=== PATIENT | female | born 1945 | race Caucasian/White ===

== ENCOUNTER → 2017-11-01 13:32 | Outpatient (CLI) | payer MEDICARE, SELFPAY | PROVIDERS: Family Provider Family Medicine; PCP Family Medicine; Visit Provider Family Medicine | DX: R06.02 Shortness of breath (principal) | CPT/HCPCS: 93016; 93017; 93018 ==

== ENCOUNTER 2019-02-18 10:13 | Day surgery (SDC) | payer MEDICARE, SELFPAY ==
--- NOTE | 2019-02-14 12:43 | PM.PREOP ---
Pre-operative Note Interval Note History & Physical reviewed/Exam performed by Physician: Yes Changes to H&P: No
--- NOTE | 2019-02-14 12:44 | P.OP_ITS ---
Operative Date/Time/Diagnoses Date of procedure: 02/18/19 Time of procedure: 11:45 Procedure & Clinicians Procedure: Preoperative diagnoses: 1. Left cortical and nuclear sclerotic cataract 2. Astigmatism which is to be corrected with a toric intraocular lens implant. 3. 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 Postoperative diagnoses: 1. Cataract removal with phacoemulsification with toric posterior chamber intraocular lens implant placed. Procedure: Phacoemulsification with posterior chamber toric intraocular lens implant. Surgeon: Maria Guadalupe Brody MD Complications: None Specimen: None Implant: [id number] [place] 145 Blood loss: None Anesthesia: Retrobulbar with monitored standby Description of procedure: Patient presents with a complaint of decreased vision due to cataract which is affecting activities of daily living especially distance. The patient wants surgery to improve vision and astigmatism. She is a high myope and understands there is slight extra risk of calculation error as well as retinal detachment. She has stable lattice degeneration prior to surgery. A distance target is chosen of -0.50. The patient was taken to the operating room and proparacaine drops placed. Indelible ink mcneill were placed at the 90 and 180 degree meridian. The patient was placed on the operating room table and given IV sedation. A retrobulbar block insert consisting of 6 cc of 2% xylocaine without epinephrine mixed half and half with 0.5% Marcaine with 1 cc of hyaluronidase added is placed between the medial and lateral 1/3 of the inferior orbital rim. The eye is manually massaged for 30 sec, prepped using Betadine solution, and draped in the usual sterile fashion. Temporal approach was made, a 1 mm side-port incision was made 90? from the proposed corneal wound. Phenylephrine 1.5% mixed with 1% xylocaine 0.2 cc was placed into the anterior chamber. Viscoat followed by [place] was then placed. A 2.6 mm clear incision with a 2.6 mm blade was placed at the 170 degree meridian. A 360 degree capsulorrhexis style capsulotomy was then performed with a cystitome needle on a [place]. Hydrodelineation and hydrodissection were performed.The patient had multiple episodes of coughing during the procedure and I had to withdraw from the eye until this cleared.No complications developed. Extra viscoelastic was placed and the procedure continued. The phacoemulsification unit is introduced, and sculpting used to groove the central lens. It is then removed in chopping mode. Epi nucleus is removed with epinuclear mode and irrigation aspiration was used to remove the peripheral cortex. The posterior capsule is polished. The intraocular lens is selected, inspected, power confirmed, and placed in the posterior chamber at the desired meridian of 145?. The pupil was not constricted. The wound was stromally hydrated and tested for leaks, there was none and it was left sutureless. Vigamox 0.1 cc was placed into the anterior chamber. Kenalog 0.2 cc was placed in the superior subconjunctival space. A drop of antibiotic and was placed and the eye was patched and shielded. The patient was stable and returned to the recovery room in excellent condition. She will need to use her inhaler immediate ly before her next surgery and will sleep with the head of her bed slightly elevated. Dictated by: Maria Guadalupe Brody MD Copy to: [facility]
[2019-02-18] MEDS: CATARACT EYE COMPOUND (10 DROPS/SYRINGE) 3 DROPS EYE-OP (11:10)
[2019-02-18] MEDS: PROPARACAINE 0.5% OPHTH SOL 2 DROPS EYE-OP ×2 (11:10→12:24)
[2019-02-18 11:21] VITALS: BP 154/77; PULSE 56; RESP 16; TEMP 36; O2SAT 97; BMI 33.3
[2019-02-18] MEDS: LIDOCAINE 2% 4 ML, BUPIVACAINE 0.5% (PF) 4 ML, HYALURONIDASE 150 UNIT INJ (12:26)
[2019-02-18] MEDS: ERYTHROMYCIN OPHTH 1 GM OINT 1 APPLIC EYE-LEFT (12:44)
[2019-02-18] MEDS: CHONDROIDTIN/SOD HYALURONATE 1.05 ML SYRINGE INTRAOCULA (12:44)
[2019-02-18] MEDS: HYALURONATE SODIUM 10 MG/ML SYRINGE INJ (12:45)
[2019-02-18] MEDS: TRIAMCINOLONE 50 MG/5 ML VIAL INJ (12:48)
[2019-02-18] MEDS: BALANCED SALT IRRIG SOLN NO.2 500 ML, EPINEPHrine 1 MG IRR (12:50)
[2019-02-18] MEDS: PHENYLEPHRINE/LIDOCAINE VIAL (OR) 0.2 ML EYE-OP (12:52)
[2019-02-18] MEDS: MOXIFLOXACIN INJ 5 MG/ML VIAL EYE-OP (12:52)
[2019-02-18 13:12] VITALS: BP 160/73; PULSE 53; RESP 10; TEMP 36.1; O2SAT 98
== END 2019-02-18 13:25 | disposition home or self-care (01) ==
LOC: OR 10:16
PROVIDERS: Family Provider Family Medicine; PCP Family Medicine; Visit Provider Ophthalmology
PROC: (CPT 66984; principal; 2019-02-18 11:45)
DX: H25.812 Combined forms of age-related cataract, left eye (principal); H52.202 Unspecified astigmatism, left eye; H44.20 Degenerative myopia, unspecified eye
CPT/HCPCS: 66984; J0171; J2704; J3301; J3470; V2787

== ENCOUNTER 2019-03-04 08:03 | Day surgery (SDC) | payer MEDICARE, SELFPAY ==
--- NOTE | 2019-03-02 12:59 | PM.PREOP ---
Pre-operative Note Interval Note History & Physical reviewed/Exam performed by Physician: Yes Changes to H&P: No H&P completed within 30 days and has changed as indicated here:: She continues to have an intermittent cough and an inhaler was used prior to surgery as well as an anti-histamine.
--- NOTE | 2019-03-02 13:00 | P.OP_ITS ---
Operative Date/Time/Diagnoses Date of procedure: 03/04/19 Time of procedure: 09:45 Procedure & Clinicians Procedure: Preoperative diagnoses: 1. Right nuclear sclerotic and cortical cataract. 2. Asthma 3. Postnasal drip with sporadic cough, significant during her last cataract surgery. 4. Obesity 5. Astigmatism which she likes to correct with a toric intraocular lens. 6. High myope. Postoperative diagnoses: 1. Cataract removed by phacoemulsification with placement of posterior chamber intraocular lens. Procedure: Phacoemulsification with posterior chamber intraocular lens implant Surgeon: Maria Guadalupe Brody MD Complications: None Specimen: None Implant: ZCT 150+10.5 [place] 112 Blood loss: None Anesthesia: Retrobulbar with monitored standby Description of procedure: Patient presents with a complaint of decreased vision due to cataract which is affecting activities of daily living. The patient wants surgery to improve vision. She wishes an astigmatism correcting implant to reduce her dependence on distance glasses. She was taken to the operating room and indelible ink mcneill were placed in the cardinal meridians with a special marking pen with the use of topical anesthetic. She had significant cough during her previous procedure and has been treated preoperatively with an antihistamine and her her inhaler to reduce likelihood of this recurring. The patient was taken to the operating room and given IV sedation. A retrobulbar block consisting of 6 cc of 2% xylocaine without epinephrine mixed half and half with 0.5% Marcaine with 1 cc of hyaluronidase added is placed between the medial and lateral 1/3 of the inferior orbital rim. The eye is manually massaged for 30 sec, prepped using Betadine solution, and draped in the usual sterile fashion. Temporal approach was made, a 1 mm side-port incision was made 90? from the proposed clear corneal incision position. Phenylephrine 1.5% mixed with 1% xylocaine 0.2 cc was placed into the anterior chamber. Viscoat followed by Brendaon was then placed. A 2.6 mm clear incision with a 2.6 mm blade was placed. A 360 degree capsulorrhexis style capsulotomy was then performed with a cystitome needle on a [place]. Hydrodelineation and hydrodissection were performed. The phacoemulsification unit is introduced, and sculpting notice used to groove the central lens. It is then removed in chopping mode. Epi nucleus is removed with epinuclear mode and irrigation aspiration was used to remove the peripheral cortex. The posterior capsule is polished. Special mcneill were placed at the desired axis of 112?. The intraocular lens is selected, inspected, power confirmed, and placed in the posterior chamber. It is placed in the desired meridian of 112?. The wound was stromally hydrated and tested for leaks, there was none and it was left sutureless. Vigamox 0.1 cc was placed into the anterior chamber. Kenalog 0.2 cc was placed in the superior subconjunctival space. A drop of antibiotic and was placed and the eye was patched and shielded. The patient was stable and returned to the recovery room in excellent condition. She did not have coughing episodes during the surgery. Dictated by: Maria Guadalupe Brody MD Copy to: [facility]
[2019-03-04 08:50] VITALS: BP 147/76; PULSE 64; RESP 17; TEMP 36.1; O2SAT 97
[2019-03-04] MEDS: PROPARACAINE 0.5% OPHTH SOL 2 DROPS EYE-OP ×2 (08:51→10:09)
[2019-03-04] MEDS: CATARACT EYE COMPOUND (10 DROPS/SYRINGE) 3 DROPS EYE-OP (08:56)
[2019-03-04 09:00] VITALS: BMI 33.3
--- NOTE | 2019-03-04 10:05 | SUR.OPER ---
Supine on eye stretcher, head on extension cradle secured with tape. Arms tucked at sides with blanket. Pillow under knees.
[2019-03-04] MEDS: ERYTHROMYCIN OPHTH 1 GM OINT 1 APPLIC EYE-RIGHT (10:08)
[2019-03-04] MEDS: PHENYLEPHRINE/LIDOCAINE VIAL (OR) 0.2 ML EYE-OP (10:08)
[2019-03-04] MEDS: TRIAMCINOLONE 50 MG/5 ML VIAL INJ (10:09)
[2019-03-04] MEDS: LIDOCAINE 2% 4 ML, BUPIVACAINE 0.5% (PF) 4 ML, HYALURONIDASE 150 UNIT INJ (10:10)
[2019-03-04] MEDS: CHONDROIDTIN/SOD HYALURONATE 1.05 ML SYRINGE INTRAOCULA (10:10)
[2019-03-04] MEDS: BALANCED SALT IRRIG SOLN NO.2 500 ML, EPINEPHrine 1 MG IRR (10:11)
[2019-03-04] MEDS: MOXIFLOXACIN INJ 5 MG/ML VIAL EYE-OP (10:11)
[2019-03-04 10:39] VITALS: BP 153/82; PULSE 58; RESP 16; TEMP 36.2; O2SAT 100
--- NOTE | 2019-03-04 10:56 | SUR.PHASEII ---
Post procedure note: VSS post op. Tolerating po without nausea. No complaints of pain. IV D/C'd. Discharge instructions reviewed with good understanding. Stable for discharge to home. W/C to car with .
== END 2019-03-04 11:00 | disposition home or self-care (01) ==
LOC: OR 08:07
PROVIDERS: Family Provider Family Medicine; PCP Family Medicine; Visit Provider Ophthalmology
PROC: (CPT 66984; principal; 2019-03-04 09:45)
DX: H25.811 Combined forms of age-related cataract, right eye (principal); J45.909 Unspecified asthma, uncomplicated; E66.9 Obesity, unspecified; H52.201 Unspecified astigmatism, right eye; H52.10 Myopia, unspecified eye
CPT/HCPCS: 66984; J0171; J2704; J3301; J3470; V2787

== ENCOUNTER 2024-07-20 14:03 | Emergency (ER) | payer MEDICARE, SELFPAY ==
[2024-07-20 14:27] VITALS: BP 154/70; PULSE 55; RESP 16; TEMP 36.6; O2SAT 99
--- NOTE | 2024-07-20 14:36 | DI.CT.S_ITS ---
PROCEDURE: CT KIDNEY URETER BLADDER (KUB) INDICATIONS: r/o kidney stone TECHNIQUE: Axial sections were acquired from the lung bases to the pubic symphysis. Coronal and sagittal reformats were performed. For radiation dose reduction, the following was used: automated exposure control, adjustment of mA and/or kV according to patient size. COMPARISON: None. FINDINGS: Image quality: Diagnostic. Lower Chest: Moderate to large hiatal hernia is seen. No pleural effusion or pneumothorax. Heart size is normal, no pericardial effusion. URINARY: Right Kidney: No stones or hydronephrosis. Right Ureter: No hydroureter. Left Kidney: No stones or hydronephrosis. Left Ureter: No hydroureter. Bladder: Normal wall thickness. No stones. ABDOMEN: Liver: No contour-deforming solid mass. Gallbladder: Gallbladder is surgically absent. Biliary ducts: No biliary dilation. Pancreas: No ductal dilation. Spleen: Size is within normal limits. Adrenal Glands: No adrenal nodules. Stomach and Bowel: Fecal stasis in the colon is seen. There is no bowel obstruction. Appendix is visualized and is within normal limits. No abnormal bowel wall thickening or mesenteric fat stranding. No abscess collection. Peritoneum: No abnormal intraperitoneal fluid. No free air. Ventral Wall: No hernia. Abdominal Nodes: No enlarged retroperitoneal or mesenteric lymph nodes. Vessels: Aorta and inferior vena cava are normal in size. PELVIS: Pelvic Organs: Unremarkable. Pelvic Nodes: Unremarkable. Miscellaneous: No inguinal hernias are seen. Bones: Prior left total hip arthroplasty is seen with beam hardening artifacts . No aggressive appearing bony lesions. No acute vertebral body compression fracture. Degenerative disc disease in visualized lower thoracic spine and lumbar spine is seen. IMPRESSION: 1. No obstructing stones or hydronephrosis. Normal appearing urinary bladder. 2. [id number] constipation. No bowel obstruction or abnormal bowel wall thickening. No free fluid or free air. Normal appendix. 3. Moderate to large size hiatal hernia. 4. Degenerative disc disease throughout lower thoracic and lumbar spine. No acute vertebral body compression fracture. Prior left total hip arthroplasty. Dictated by: Tavon Mckeon M.D. on 07/20/2024 at 15:30 Approved by: Tavon Mckeon M.D. on 07/20/2024 at 15:48
[2024-07-20 14:43] LABS: Appearance Urine UA CLEAR; Bilirubin Urine UA NEGATIVE (NEGATIVE); Color Urine UA YELLOW; Glucose Urine UA NEGATIVE (Negative); Ketones Urine UA NEGATIVE (NEGATIVE); Leukocyte Esterase Urine UA TRACE (NEGATIVE); Nitrite Urine UA POSITIVE (Negative); Occult Blood Urine UA NEGATIVE (Negative); Protein Urine UA NEGATIVE (Negative); Specific Gravity Urine UA 1.015 (1.000-1.035); Urobilinogen Urine UA 0.2 E.U./dL (0.2); pH Urine UA 5.5 (4.5-8.0)
[2024-07-20 14:44] LABS: Urine Volume 10mL (spun)
[2024-07-20 14:45] LABS: Bacteria Urine Many (>30); Culture Indicated Urine Specimen Cultured; RBC Urine None Seen (0-5/HPF); Squamous Epithelial Cell Urine None Seen (0-5/HPF); WBC Urine 1-5/HPF (0-5/HPF)
--- NOTE | 2024-07-20 17:36 | ED_ITS ---
HPI - Female Genitourinary <Kurtis Griffiths PA-C - Last Filed: 07/20/24 18:11> General Chief complaint: Urogenital-Female Stated complaint: Directed to ER for CT Time Seen by Provider: 07/20/24 17:27 Source: patient Mode of arrival: Ambulatory History of Present Illness HPI Narrative: 78-year-old female presents to the ED with 1 day of right-sided abdominal pain. Patient was seen at the [place] ED, labs were obtained but there CT was down and therefore were sent to our ED for further evaluation. They would like to rule out kidney stones. Patient states that she was vacuuming, when she felt onset of left-sided abdominal pain that started just below the right lower ribs, radiating through her groin. Patient also felt some chills, nausea. No fever, vomiting, chest pain, shortness of breath. Patient does not have a history of UTI. Patient is status post cholecystectomy. Patient states that the severe pain lasted for about 2-3 hours, after which it became a very mild dull pain. Related Data Home Medications Medication Instructions Recorded Confirmed albuterol sulfate 90 mcg/actuation 1 inh inhalation QID 02/18/19 02/18/19 aerosol inhaler (ProAir HFA) fluticasone 100 mcg-salmeterol 50 1 puff inhalation BID 02/18/19 02/18/19 mcg/dose blistr powdr for inhalation (Wixela Inhub) Previous Rx's Medication Instructions Recorded cefdinir 300 mg capsule 300 mg PO Q12H 10 days #20 caps 07/20/24 Allergies Allergy/AdvReac Type Severity Reaction Status Date / Time epinephrine AdvReac Palpitation Verified 07/20/24 14:27 s neomycin AdvReac Rash Verified 07/20/24 14:27 oxycodone [From Endocet] AdvReac Nausea Verified 07/20/24 14:27 Review of Systems <Kurtis Griffiths PA-C - Last Filed: 07/20/24 18:11> Constitutional Constitutional: Reports chills, Denies fatigue, Denies fever(s), Denies frequent falls, Denies lethargy and Denies weakness Eyes Eyes: Denies change in vision, Denies eye discharge, Denies irritation and Denies loss of vision ENT Ears, Nose, Mouth, and Throat: Denies change in voice, Denies dizziness, Denies neck pain, Denies sore throat and Denies throat swelling Cardiovascular Cardiovascular: Denies chest pain, Denies irregular heart rhythm, Denies lightheadedness, Denies palpitations, Denies dyspnea, Denies dyspnea on exertion and Denies orthopnea Respiratory Respiratory: Denies cough, Denies dyspnea, Denies dyspnea on exertion and Denies wheezing Gastrointestinal Gastrointestinal: Reports abdominal pain, Denies change in bowel habits, Denies diarrhea, Reports nausea and Denies vomiting Musculoskeletal Musculoskeletal: Denies neck pain and Denies numbness Integumentary/Breasts Skin/Breast: Denies pruritus, Denies erythema, Denies rash and Denies wounds Neurologic Neurologic: Denies behavioral changes, Denies confusion, Denies dizziness, Denies frequent falls, Denies loss of vision, Denies numbness and Denies weakness Psychiatric Psychiatric: Denies anxiety, Denies behavioral changes, Denies confusion, Denies depression, Denies homicidal ideation and Denies suicidal ideation Endocrine Endocrine: Denies fatigue, Denies flushing and Denies palpitations Hematologic/Lymphatic Hematologic/Lymphatic: Denies easy bruising Allergic/Immunologic Allergic/Immunologic: Denies urticaria, Denies throat swelling and Denies wheezing Exam <Kurtis Griffiths PA-C - Last Filed: 07/20/24 18:11> Narrative Exam Narrative: Const General:?cooperative, healthy appearing and comfortable [facility] Head:?normal to inspection Ears:?hearing grossly normal bilaterally Nose:?external nose normal Face and sinus:?normal facial exam and sinuses nontender Mouth:?oral mucosae normal Throat:?posterior oropharynx normal Eyes General:?appearance normal, both eyes and all related structures Neck Neck:?normal visual inspection and no lymphadenopathy noted Resp Effort & Inspection:?normal respiratory effort Auscultation:?clear to auscultation bilaterally Cardio Rate:?regular rate Rhythm:?regular rhythm GI Abdomen is soft, nondistended. Abdomen is very mildly tender to palpation in the right upper quadrant. It is possible the pain is musculoskeletal versus constipation. No CVA tenderness. Neuro General:?patient alert, patient awake and patient oriented x3 Initial Vital Signs Initial Vital Signs: Vital Signs Temperature 97.8 F 07/20/24 14:27 Pulse Rate 55 L 07/20/24 14:27 Respiratory Rate 16 07/20/24 14:27 Blood Pressure 154/70 H 07/20/24 14:27 Pulse Oximetry 99 07/20/24 14:27 Oxygen Delivery Method Room Air 07/20/24 14:27 <Poly Benítez DO - Last Filed: 07/22/24 09:02> Initial Vital Signs Initial Vital Signs: Vital Signs Temperature 97.8 F 07/20/24 14:27 Pulse Rate 55 L 07/20/24 14:27 Respiratory Rate 16 07/20/24 14:27 Blood Pressure 154/70 H 07/20/24 14:27 Pulse Oximetry 99 07/20/24 14:27 Oxygen Delivery Method Room Air 07/20/24 14:27 Course <Kurtis Griffiths PA-C - Last Filed: 07/20/24 18:11> Orders Ordered: Discontinued Medications Cefdinir (Cefdinir 300 Mg Capsule) 300 mg PO NOW ONE Stop: 07/20/24 17:46 Last Admin: 07/20/24 17:59 Dose: 300 mg Documented By: SHANICE Vital Signs Vital signs: Vital Signs - 8 hr 07/20/24 14:27 Temperature 97.8 F Pulse Rate 55 L Respiratory Rate 16 Blood Pressure 154/70 H Pulse Oximetry 99 Oxygen Delivery Method Room Air <Poly Benítez DO - Last Filed: 07/22/24 09:02> Orders Ordered: Discontinued Medications Cefdinir (Cefdinir 300 Mg Capsule) 300 mg PO NOW ONE Stop: 07/20/24 17:46 Last Admin: 07/20/24 17:59 Dose: 300 mg Documented By: SHANICE Vital Signs Vital signs: Vital Signs - 8 hr 07/20/24 14:27 Temperature 97.8 F Pulse Rate 55 L Respiratory Rate 16 Blood Pressure 154/70 H Pulse Oximetry 99 Oxygen Delivery Method Room Air MDM - Female Genitourinary <Kurtis Griffiths PA-C - Last Filed: 07/20/24 18:11> Lab Data Labs: Lab Results 07/20/24 Range/Units 14:31 Urine Color Yellow Urine Appearance Clear Urine pH 5.5 (4.5-8.0) Ur Specific [place] 1.015 (1.000-1.035) Urine Protein Negative (Negative) Urine Glucose (UA) Negative (Negative) g/dL Urine Ketones Negative (NEGATIVE) Urine Occult Blood Negative (Negative) Urine Nitrate Positive H (Negative) Urine Bilirubin Negative (NEGATIVE) Urine Urobilinogen 0.2 (0.2) E.U./dL Ur Leukocyte Esterase Trace H (NEGATIVE) Urine RBC None seen (0-5/HPF) Urine WBC 1-5/hpf (0-5/HPF) Ur Squamous Epith Cells None seen (0-5/HPF) Urine Bacteria Many (>30) H (None) Ur Culture Indicated? Specimen cultured Vol Urine Centrifuged 10ml (spun) MDM Narrative Medical decision making narrative: 78-year-old female presents to the ED with 1 day of right-sided abdominal pain. CT KUB and UA were obtained obtained. UA positive for a UTI. CT KUB shows no stones or hydronephrosis. Fecal stasis in the colon is seen. No bowel obstruction. Appendix is normal. No abnormal bowel wall thickening or mesenteric fat stranding. No abscess collection. It is possible patient had a kidney stone that she passed prior to the CT. Her UTI and constipation could be contributing to her symptoms as well. Also considered musculoskeletal sprain/strain. Discussed findings with patient. Recommend bowel regimen with MiraLax. Prescribed antibiotics for the UTI. First dose of antibiotics given to the patient in the ED. recommend follow-up with PCP as soon as possible. ED return precautions discussed with patient. Patient verbalized understanding. Medical records reviewed: Yes <Poly Benítez, - Last Filed: 07/22/24 09:02> Lab Data Labs: Lab Results 07/20/24 Range/Units 14:31 Urine Color Yellow Urine Appearance Clear Urine pH 5.5 (4.5-8.0) Ur Specific [place] 1.015 (1.000-1.035) Urine Protein Negative (Negative) Urine Glucose (UA) Negative (Negative) g/dL Urine Ketones Negative (NEGATIVE) Urine Occult Blood Negative (Negative) Urine Nitrate Positive H (Negative) Urine Bilirubin Negative (NEGATIVE) Urine Urobilinogen 0.2 (0.2) E.U./dL Ur Leukocyte Esterase Trace H (NEGATIVE) Urine RBC None seen (0-5/HPF) Urine WBC 1-5/hpf (0-5/HPF) Ur Squamous Epith Cells None seen (0-5/HPF) Urine Bacteria Many (>30) H (None) Ur Culture Indicated? Specimen cultured Vol Urine Centrifuged 10ml (spun) Discharge Plan Departure Patient Disposition: Home Clinical Impression: Urinary tract infection Qualifiers: Urinary tract infection type: acute cystitis Hematuria presence: without hematuria Qualified Code(s): N30.00 - Acute cystitis without hematuria Instructions: DI for Urinary Tract Infection (UTI) Activity Restrictions/Additional Instructions: You were evaluated in the emergency room for some right-sided abdominal pain. Your CT scan does not show any kidney stones, does show some constipation. Your urine was positive for a urinary tract infection. You are being prescribed antibiotics for it. Please also increase your water, fiber intake to address the constipation. You may also take MiraLax nightly for the next few weeks. Please continue to monitor your abdominal pain and return to the ED if you have worsening symptoms. Prescriptions: New cefdinir 300 mg capsule 300 mg PO Q12H 10 Days Qty: 20 0RF No Action fluticasone propion-salmeterol [Wixela Inhub] 100-50 mcg/dose Blister With Device 1 puff INHALATION BID albuterol sulfate [ProAir HFA] 90 mcg/actuation Hfa Aerosol Inhaler 1 inh INHALATION QID Referrals: Poly Nelson MD [Primary Care Provider] - Stand Alone Forms: Patient Portal/API/Survey ED Sign-out <Poly Benítez DO - Last Filed: 07/22/24 09:02> Cosign ED Attending Cosdavonature Attestation: I was immediately available in the department for consultation.
[2024-07-20] MEDS: CEFDINIR 300 MG CAPSULE PO (17:59)
[2024-07-20 18:19] VITALS: BP 138/63; PULSE 56; RESP 18; O2SAT 99
== END 2024-07-20 18:22 | disposition home or self-care (01) ==
PROVIDERS: Emergency Medicine; Emergency Provider Student in an Organized Health Care Education/Training Program; Family Provider Family Medicine; PCP Family Medicine
DX: N30.00 Acute cystitis without hematuria (principal)
CPT/HCPCS: 74176; 81001; 87077; 87086; 87186; 99283; 99284